=== PATIENT | female | born 1950 | race Caucasian/White ===

== ENCOUNTER 2018-01-21 13:20 | Outpatient (CLI) | payer MEDICARE, OTHER | END 2018-01-21 13:21 | disposition home or self-care (01) | LOC: RT 13:20 | PROVIDERS: ATTEND Internal Medicine | DX: R06.00 Dyspnea, unspecified (principal) | CPT/HCPCS: 94010 ==

== ENCOUNTER 2018-12-04 14:50 | Outpatient (CLI) | payer MEDICARE, OTHER ==
--- NOTE | 2018-12-05 15:20 | Ultrasound Report ---
Reason: HYPOTHYROIDISM,UNSPECIFIED Procedure Date: 12/04/2018 Accession Number: [id number] / [id number] Procedure: US - Head or Neck Soft Tissue CPT Code: FULL RESULT: EXAM: THYROID ULTRASOUND EXAM DATE: 12/04/2018 03:21 PM. CLINICAL HISTORY: Hypothyroidism COMPARISON: None. TECHNIQUE: Real time sonographic imaging of the thyroid was performed by the chief medical director. Multiple sales representative [employer] static images were saved for review. FINDINGS: THYROID GLAND: Right Lobe: 4.3 x 1.5 x 1.6 cm, volume 5.4 cc. Diffusely heterogeneous, nodular parenchyma without discrete measurable nodules. Left Lobe: 3.5 x 0.9 x 1.4 cm, volume 2.4 cc. Diffusely heterogeneous, nodular parenchyma without discrete measurable nodules. Isthmus: 0.2 cm AP. LYMPH NODES: No adenopathy demonstrated in the central or lateral compartment. OTHER: None. IMPRESSION: Small thyroid gland with diffusely heterogeneous, nodular parenchyma and no discrete measurable nodules, which may represent sequela of chronic hypothyroidism. RADIA
== END 2018-12-04 14:51 | disposition home or self-care (01) ==
LOC: DI 14:50
PROVIDERS: ATTEND Internal Medicine
DX: E03.9 Hypothyroidism, unspecified (principal)
CPT/HCPCS: 76536

== ENCOUNTER 2019-09-11 12:43 | Outpatient (CLI) | payer MEDICARE, OTHER ==
--- NOTE | 2019-09-12 10:02 | Mammography Report ---
Reason: ROUTINE MAMMO Procedure Date: 09/11/2019 Accession Number: [id number] / [id number] Procedure: MGS - Screening Mammo Dig Bilat CPT Code: Final Report FULL RESULT: EXAM: Screening Mammo Dig Bilat DATE: 09/11/2019 1:09 PM CLINICAL HISTORY: The patient is an asymptomatic 69-year-old female presenting for screening mammography. Patient reports a Second degree family history of breast cancer. TECHNIQUE: (B) - Bilateral CC and MLO views were obtained. COMPARISON: None available. PARENCHYMAL PATTERN: (A) - The breasts demonstrate scattered fibroglandular densities bilaterally. FINDINGS: RIGHT BREAST: There are no suspicious masses, calcifications, or areas of distortion. LEFT BREAST: There are loosely-grouped calcifications in the upper outer middle position. Recommend targeted magnification views for more detailed evaluation. The remainder the parenchymal pattern is unremarkable. IMPRESSION: RIGHT BREAST: Negative examination. BI-RADS category 1. LEFT BREAST: Incomplete examination. BI-RADS Category 0 RECOMMENDATION: The patient should be recalled to undergo targeted magnification views of the left breast, as described above.. BI-RADS CATEGORY: (0) - Incomplete Examination - need additional evaluation. STANDARD QUALIFYING STATEMENTS: 1. This examination was reviewed with the aid of Computer-Aided Detection (CAD). 2. A negative or benign imaging report should not preclude biopsy if clinically suspicious findings are present. 3. Dense breasts may obscure an underlying neoplasm.
== END 2019-09-11 12:44 | disposition home or self-care (01) ==
LOC: DI.S 12:43
PROVIDERS: ATTEND Physician Assistant
DX: Z12.31 Encounter for screening mammogram for malignant neoplasm of breast (principal); R92.1 Mammographic calcification found on diagnostic imaging of breast; Z80.3 Family history of malignant neoplasm of breast
CPT/HCPCS: 77067

== ENCOUNTER 2019-10-25 09:35 | Outpatient (CLI) | payer MEDICARE, OTHER ==
--- NOTE | 2019-10-25 16:36 | Mammography Report ---
Reason: ABN MAMMO - LT SPEC VIEWS Procedure Date: 10/25/2019 Accession Number: [id number] / [id number] Procedure: GERARD - Diag Special Views Dig LT CPT Code: Final Report FULL RESULT: EXAM: Diag Special Views Dig LT DATE: 10/25/2019 10:20 AM CLINICAL HISTORY: Diagnostic examination. The patient is recalled from screening for a grouping of calcifications in the left breast. TECHNIQUE: (L) - Left ML, magnified ML and magnified CC views are obtained. COMPARISON: 09/11/2019 through 02/21/2007. PARENCHYMAL PATTERN: (A) - The breast(s) demonstrate(s) scattered fibroglandular densities. FINDINGS: The grouping of calcifications in the left upper outer breast 11.4 cm from the nipple is probably benign with no associated mass seen. There are no suspicious masses or areas of distortion. IMPRESSION: Probably Benign. BI-RADS category 3. RECOMMENDATION: (6MOS) - Recommend 6 month follow-up exam. Left breast magnification views. BI-RADS CATEGORY: (3) - Probably Benign. STANDARD QUALIFYING STATEMENTS: 1. This examination was not reviewed with the aid of Computer-Aided Detection (CAD). 2. A negative or benign imaging report should not preclude biopsy if clinically suspicious findings are present. 3. Dense breasts may obscure an underlying neoplasm. 4. This examination was reviewed with the aid of 3D breast imaging (tomosynthesis).
== END 2019-10-25 09:36 | disposition home or self-care (01) ==
LOC: DI 09:35
PROVIDERS: ATTEND Physician Assistant
DX: R92.1 Mammographic calcification found on diagnostic imaging of breast (principal)

== ENCOUNTER 2020-06-24 10:16 | Outpatient (CLI) | payer MEDICARE, OTHER ==
--- NOTE | 2020-06-26 11:45 | Mammography Report ---
UNILATERAL LEFT DIGITAL DIAGNOSTIC MAMMOGRAM 3D/2D: 06/24/2020 CLINICAL: Patient returns for a 6 month follow up of the left breast. Comparison is made to exams dated: 10/25/2019 mammogram, 09/11/2019 mammogram, and 02/23/2014 mammogram - [facility]. The tissue of left breast is predominantly fatty. There are grouped linear fine calcifications in the left breast at 1 o'clock middle depth. There is architectural distortion associated with the calcifications. No other significant masses or calcifications are seen in the breast. IMPRESSION: SUSPICIOUS OF MALIGNANCY The grouped linear fine calcifications in the left breast are at a low suspicion for malignancy. A s tereotactic biopsy is recommended. This exam was interpreted at Station ID: [id number]. NOTE: For mammograms, a report in lay terms will be sent to the patient. Approximately 15% of breast malignancies will not be visualized mammographically. In the management of a palpable breast mass, a negative mammogram must not discourage biopsy of a clinically suspicious lesion. SUMMARY: This was discussed with the patient by the radiologist Dr. García at the time of the exam. Electronically Signed By: Brittany Dillard M.D. lk/:06/24/2020 12:11:16 ACR BI-RADS Category 4a: Suspicious abnormality - low suspicion for malignancy 3344F PARENCHYMAL PATTERN: (F) - The breast(s) demonstrate(s) diffuse fatty replacement. BI-RADS CATEGORY: (4a) - Low Susp Biopsy follow-up [id number] Immediate follow-up LATERALITY: (B)
== END 2020-06-24 10:17 | disposition home or self-care (01) ==
LOC: DI 10:16
PROVIDERS: ATTEND Registered Nurse
DX: R92.1 Mammographic calcification found on diagnostic imaging of breast (principal)

== ENCOUNTER 2020-07-11 13:10 | Outpatient (CLI) | payer MEDICARE, OTHER ==
[~2020-07-11 13:10] MED LIST: BUFFERED LIDOCAINE 10 ML SYRINGE ONE; BUPIVACAINE 0.5% PF 10 ML VIAL ONE
[2020-07-11] MEDS ORDERED: BUPIVACAINE 0.5% PF 10 ML VIAL ONE (13:18)
[2020-07-11] MEDS ORDERED: BUFFERED LIDOCAINE 10 ML SYRINGE IU ONE (15:30)
[2020-07-11] MEDS ORDERED: LIDOCAINE 1%-EPI 1:100000 20 ML MDV SUBQ ONE (15:31)
--- NOTE | 2020-07-16 06:59 | Mammography Report ---
DIGITAL TOMOGRAPHIC MAMMOGRAPHY GUIDED STEREOTACTIC GUIDED BIOPSY LEFT BREAST WITH MARKING DEVICE INS ERTED: 07/11/2020 CLINICAL: Microcalcifications left breast. PATIENT CONSENT: Risks (minor bleeding, infection, vasovagal reaction and repeat procedure), benefits and alternatives were explained to the patient and written informed consent was obtained. Correlation is made to exams dated: 06/24/2020 mammogram, 10/25/2019 mammogram, 09/11/2019 mammogram, a nd 02/23/2014 mammogram - [facility]. A stereotactic guided biopsy was performed for the area of grouped and linear fine calcifications loc ated in the left breast at 2 o'clock middle depth. This was described on the previous mammography re port. The skin was prepped in the usual manner. Local anesthetic was administered to the access sit e. A small incision was made in the breast. The abnormality was approached from the craniocaudal as pect using an upright digital tomographic mammography unit. A 9 gauge biopsy needle was placed adjac ent to the abnormality under computer guidance and confirmatory stereotactic mammography images were obtained to document needle placement. Once the needle was documented to be in the correct location, a specimen was obtained using an automated biopsy gun. A clip was inserted into the biopsy cavity. A skin closure strip and a sterile dressing were applied to the access site. Post procedure imaging demonstrates the location device at the targeted area. The specimen was sent to the laboratory for pathological analysis. IMPRESSION: STEREOTACTIC GUIDED BIOPSY HIGH RISK BENIGN Stereotactic guided biopsy of the area of grouped and linear fine calcifications in the left breast a t 2 o'clock middle depth was successful. Pathology indicates high risk benign atypical ductal hyper plasia (ADH). Pathology results are concordant with imaging findings. A surgical consultation and e xcisional biopsy is recommended. This exam was interpreted at Station ID: [id number]. Wu Dillard M.D., jr,lk/:07/15/2020 14:00:54 BI-RADS CATEGORY: () - Unspecified - other recall n/a LATERALITY: (B)
== END 2020-07-11 13:11 | disposition home or self-care (01) ==
LOC: DI 13:10
PROVIDERS: ATTEND Registered Nurse
DX: N60.92 Unspecified benign mammary dysplasia of left breast (principal)
CPT/HCPCS: 19081; 88305; 88342; 88360

== ENCOUNTER 2020-09-11 13:26 | Outpatient (CLI) | payer MEDICARE, OTHER | END 2020-09-11 13:27 | disposition home or self-care (01) | LOC: LAB 13:26 | PROVIDERS: ATTEND Surgery | DX: Z01.812 Encounter for preprocedural laboratory examination (principal); Z01.818 Encounter for other preprocedural examination; Z20.828 Contact with and (suspected) exposure to other viral communicable diseases; N60.89 Other benign mammary dysplasias of unspecified breast | CPT/HCPCS: 93005; U0004 ==

== ENCOUNTER 2020-09-16 08:24 | Day surgery (SDC) | payer MEDICARE, OTHER ==
[2020-09-16] MEDS ORDERED: LACTATED RINGERS 1,000 ML IV ONE ×2 (09:11→13:57)
[2020-09-16] MEDS ORDERED: CEFAZOLIN SODIUM IN 0.9 % NACL 2 GM/100 ML BAG IV ONE (09:19)
[2020-09-16] MEDS ORDERED: BUFFERED LIDOCAINE 10 ML SYRINGE ONE (09:19)
[2020-09-16] MEDS ORDERED: BUPIVACAINE 0.5% PF 10 ML VIAL ONE (09:26)
--- NOTE | 2020-09-16 10:50 | ANESTHESIA ---
Pre-Anesthesia VS, & Labs - Diagnosis left breast cancer - Procedure left breast lumpectomy after needle localization Vital Signs: Temp Pulse Resp BP Pulse Ox 36.4 C L 85 15 156/82 H 96 09/16/20 08:30 09/16/20 08:30 09/16/20 08:30 09/16/20 08:30 09/16/20 08:30 Height: 5 ft 2 in Weight (kg): 81.3 kg Body Mass Index: 32.8 BMI Classification: Obese - NPO >8 hours - Is Patient ?: No Home Medications and Allergies Home Medications: Ambulatory Orders Melatonin 10 mg SL QPM 09/09/20 Thyroid,Pork [[place] Thyroid] 120 mg PO DAILY 09/09/20 Melatonin 10 mg SL QPM 09/09/20 Thyroid,Pork [[place] Thyroid] 120 mg PO DAILY 09/09/20 Allergies/Adverse Reactions: Allergies Allergy/AdvReac Type Severity Reaction Status Date / Time codeine AdvReac Nausea Verified 09/12/15 11:12 Anes History & Medical History - Anesthetic History Anesthesia Complications: reports: No previous complications - Medical History Cardiovascular: reports: Hypertension Pulmonary: reports: None Gastrointestinal: reports: None Urinary: reports: None Musculoskeletal: reports: None Endocrine/Autoimmune: reports: HyPOthyroidism Skin: reports: Psoriasis Smoking Status: Never smoker History of Cancer?: Yes - Surgical History General: Cholecystectomy Eyes Ears Nose Throat (EENT): Tonsil/Adenoidectomy Gynecologic: Tubal ligation Exam General: Alert Dental: WNL Mouth Opening: Greater than 4 Fingerbreadths Neck Mobility: Normal Mallampati classification: III Plan Anesthesia Type: General Consent for Procedure(s) Verified and Reviewed: Yes Code Status: Attempt Resuscitation ASA classification: 2-Mild systemic disease Is this case an emergency?: No
[2020-09-16] MEDS ORDERED: LIDOCAINE 1%-EPI 1:100000 20 ML MDV ONE (10:56)
[2020-09-16] MEDS ORDERED: ONDANSETRON 4 MG/2 ML VIAL ONE (10:56)
[2020-09-16] MEDS ORDERED: BUPIVACAINE 0.5% PF 30 ML VIAL ONE (10:57)
[2020-09-16] MEDS ORDERED: ePHEDrine 50 MG/ML VIAL IVP PRN (10:59)
[2020-09-16] MEDS ORDERED: fentaNYL 100 MCG/2 ML VIAL IVP PRN (10:59)
[2020-09-16] MEDS ORDERED: METOCLOPRAMIDE 10 MG/2 ML VIAL IVP PRN (10:59)
[2020-09-16] MEDS ORDERED: ONDANSETRON 4 MG/2 ML VIAL IVP PRN ×2 (10:59→13:47)
[2020-09-16] MEDS ORDERED: HYDROmorphone 0.5 MG/0.5 ML SYRINGE IVP PRN (10:59)
[2020-09-16] MEDS ORDERED: NALOXONE 0.4 MG/ML VIAL IVP PRN (10:59)
[2020-09-16] MEDS ORDERED: ATROPINE ABBOJECT 1 MG/10 ML SYRINGE IVP PRN (10:59)
[2020-09-16] MEDS ORDERED: MORPHINE 2 MG/ML CARPUJECT IVP PRN (10:59)
[2020-09-16] MEDS ORDERED: SCOPOLAMINE PATCH TOP SCH (11:00)
[2020-09-16] MEDS ORDERED: LACTATED RINGERS 1,000 ML IV SCH (11:00)
[2020-09-16] MEDS ORDERED: PROPOFOL 200 MG/20 ML VIAL IVP ONE (12:49)
[2020-09-16] MEDS ORDERED: MIDAZOLAM 2 MG/2 ML VIAL IVP ONE (12:49)
[2020-09-16] MEDS ORDERED: DEXAMETHASONE 4 MG/ML VIAL IVP ONE (12:49)
[2020-09-16] MEDS ORDERED: fentaNYL 100 MCG/2 ML VIAL IVP ONE (12:49)
[2020-09-16] MEDS ORDERED: ACETAMINOPHEN 1,000 MG/100 ML 100 ML IV ONE (12:49)
[2020-09-16] MEDS ORDERED: LIDOCAINE-MPF 2% 5 ML VIAL IM ONE (12:49)
[2020-09-16] MEDS ORDERED: BUFFERED LIDOCAINE 10 ML SYRINGE IU ONE (13:03)
[2020-09-16] MEDS ORDERED: BUPIVACAINE 0.5% PF 30 ML VIAL SUBQ ONE (13:40)
[2020-09-16] MEDS ORDERED: LIDOCAINE 1%-EPI 1:100000 30 ML MDV SUBQ ONE (13:40)
[2020-09-16] MEDS ORDERED: oxyCODONE 5 MG TABLET PO PRN (13:47)
[2020-09-16] MEDS ORDERED: IBUPROFEN 600 MG TABLET PO PRN (13:47)
[2020-09-16] MEDS ORDERED: ACETAMINOPHEN 325 MG TABLET PO PRN (13:47)
--- NOTE | 2020-09-16 13:47 | OPERATIVE REPORT ---
Operative Report - General Procedure Date: 09/16/20 Planned Procedure: Left breast lumpectomy after needle localization Pre-Op Diagnosis: Left breast atypical ductal hyperplasia Procedure Performed: Same Post Op Diagnosis: Same - Procedure Note Primary Surgeon: Jennifer Anesthesia Provider: TIGRE Mckeon Anesthesia Technique: General LMA, Local Pathology: Specimen marked for orientation and submitted to pathology Estimated Blood Loss (mL): 5 Findings: Lesion contained within the specimen Complications: None apparent - Other Other Information/Narrative: We turned our attention to the left breast mass.The position of the wire within the breast was noted on mammogram. Measurements were made from the center of the mass and then marked on the skin as guides for approximate margins. The area over the mass and in the periareolar region was infiltrated with a mixture of local anesthetics to cry to field block. A periareolar incision was then created in the medial aspect of the left nipple areola complex. This was carried through the skin to the marked margin. The mass was carefully dissected sharply from the dermis anteriorly and from the muscle posteriorly. The entire mass was removed sharply using the skin markings as guides to ensure an adequate margin. The retromammary bursa was not adherent to the underlying muscle. The mass was reviewed moved in a single piece in a medial to lateral fashion. It was marked with the wire in the superior position, long stitch lateral, and short stitch anterior. It was finally liberated sharply and delivered into the field. The wound was checked for hemostasis. It was irrigated again with warm water. The biopsy cavity was then marked for orientation with clips peripherally and centrally.The wound was then closed in 2 layers with Vicryl and Monocryl sutures. All sponge, needle, and instrument counts were correct at the conclusion of the case. The patient was let awakened anesthesia without difficulty and taken to the postanesthesia care unit in good condition.
--- NOTE | 2020-09-16 14:37 | ANESTHESIA POST OP EVALUATION ---
Anesthesia Post Eval - Post Anesthesia Eval Vitals: Last Vital Signs Temp 36.1 C L 09/16/20 14:15 Pulse 78 09/16/20 14:20 Resp 15 09/16/20 14:20 BP 141/76 H 09/16/20 14:20 Pulse Ox 99 09/16/20 14:20 CV Function Including HR & BP: positive: Stable Pain Control: positive: Satisfactory Nausea & Vomiting: positive: Negative Mental Status: positive: Baseline Respiratory Status: Airway Patent Hydration Status: Satisfactory Anesthesia Complications: positive: None
[2020-09-16] MEDS ORDERED: oxyCODONE 5 MG TABLET ONE (14:47)
[2020-09-16 15:20] VITALS: BP 145/75
--- NOTE | 2020-09-20 08:06 | Mammography Report ---
MAMMOGRAPHY GUIDED WIRE LOCALIZATION LEFT BREAST: 09/16/2020 CLINICAL: Left breast wire localization. Correlation is made to exams dated: 07/11/2020 stereotactic biopsy and 06/24/2020 mammogram - [facility]. A wire localization using mammography guidance was performed for the area of linear amorphous calcifi cations located in the left breast at 1 o'clock posterior depth. This was described on the previous mammography report. The skin was prepped in the usual manner. Local anesthetic was administered to the access site. The localization was approached from the craniocaudal aspect. A J-hook wire was in serted into the targeted area under mammography guidance. It is noted that the biospy clip is notabl y inferior to the calcifications. Wire was placed near clip. However, before repositioning, patient had [place] and vomiting, as well as near syncopal episode. Procedure was terminated and position of calcifications relative to localization needle was conveyed to Dr. Byers. Calcifications are approxi mately 3.5 cm from skin surface along wire track. IMPRESSION: WIRE LOCALIZATION Wire localization for the area of linear amorphous calcifications in the left breast at 1 o'clock pos terior depth was successful. This exam was interpreted at Station ID: [id number]. Vivi Hong M.D. [facility]/:09/19/2020 16:43:38 BI-RADS CATEGORY: () - Unspecified - other recall n/a LATERALITY: (B)
--- NOTE | 2020-09-20 08:06 | Mammography Report ---
SPECIMEN LEFT BREAST: 09/16/2020 CLINICAL: Left breast specimen. No prior exams were available for correlation. A specimen was imaged for the area of linear amorphous calcifications located in the left breast at 1 o'clock posterior depth. This was described on the previous mammography report. Clipl was not inc luded due to clip migration from biopsy site. IMPRESSION: SPECIMEN The imaged specimen includes the calcifications and a location device and does not include biopsy cli p. This exam was interpreted at Station ID: [id number]. Vivi Hong M.D. [facility]/:09/19/2020 16:45:02 BI-RADS CATEGORY: () - Unspecified - other recall n/a LATERALITY: (B)
== END 2020-09-16 08:25 | disposition home or self-care (01) ==
LOC: SDS 08:24
PROVIDERS: ATTEND Surgery
PROC: 0HBU0ZZ Excision of Left Breast, Open Approach (ICD-10-PCS; principal; 2020-09-16 11:30)
DX: C50.912 Malignant neoplasm of unspecified site of left female breast (principal); Z17.0 Estrogen receptor positive status [ER+]; I10 Essential (primary) hypertension; E66.9 Obesity, unspecified; Z68.32 Body mass index [BMI] 32.0-32.9, adult
CPT/HCPCS: 19281; 19301; 76098; 88307; 88342; 88360; A9270; J0131; J0690; J3490; J7120

== ENCOUNTER 2020-10-17 15:39 | Outpatient (CLI) | payer MEDICARE, OTHER ==
[2020-10-17] MEDS ORDERED: GADOBUTROL 10 MMOL/10 ML VIAL ONE (16:56)
[2020-10-18] MEDS ORDERED: GADOBUTROL 10 MMOL/10 ML VIAL IVP ONE (19:10)
--- NOTE | 2020-10-22 10:12 | MRI Report ---
BREAST MRI OF BOTH BREASTS: 10/17/2020 CLINICAL: Post left lumpectomy. Personal history of left breast cancer. Comparison is made to exams dated: 07/11/2020 stereotactic biopsy, 06/24/2020 mammogram, 10/25/2019 isa mogram, 09/11/2019 mammogram, 09/16/2020 localization, and 09/16/2020 specimen - [facility]. TECHNIQUE: The patient was placed prone in a dedicated breast imaging coil. Precontrast axial STIR and 3D FLASH without fat saturation sequences were obtained. Both before and after bolus injection of contrast, sequential 1-minute axial 3D FLASH with fat saturation sequences for 3 time points, with subtraction images and maximum intensity projections (MIP's) generated. Delayed sagittal FLASH images with fat s aturation were also obtained. Computer-aided detection, including computer algorithm analysis of MRI image data for lesion detectio n and characterization, pharmacokinetic analysis, with further physician review for interpretation, w as performed. FINDINGS: Image quality: Excellent. There is mild background parenchymal enhancement. Right breast: A 7 mm nonenhancing intrinsically T1-hyperintense lesion is seen within the skin of th e right breast at the 7-8 o'clock position approximately 2 cm from the nipple. No suspicious mass or abnormal non-mass enhancement is seen in the right breast. There is no signific ant right axillary lymphadenopathy. Left breast: A lumpectomy cavity is seen in the left breast upper outer quadrant middle depth. The c avity has a thin rim of peripheral enhancement without solid nodular enhancement to suggest residual or recurrent disease. The biopsy clip is again seen in the left breast at the 3 o'clock position midd le depth. This clip is noted to be inferior to the area of suspicious calcifications seen on the prio r diagnostic mammograms. There is no significantly enlarged or suspicious appearing left axillary lymph nodes. Miscellaneous: No suspicious abnormality is seen in the included portions of the anterior chest wall or upper abdomen. IMPRESSION: KNOWN BIOPSY PROVEN MALIGNANCY 1. Postsurgical changes are seen in the left breast with a lumpectomy cavity in the upper outer quadr ant. There is an expected thin rim of enhancement surrounding the lumpectomy cavity without a suspici ous thick nodular component. 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 2. The biopsy clip is seen in the left breast at the 3 o'clock position middle depth, which is noted to be inferior to the area of suspicious calcifications on the prior mammograms. No suspicious enhanc ement is identified in the area of the biopsy clip. 3. No suspicious mass or abnormal non-mass enhancement is seen in the right breast. 4. No significant axillary lymphadenopathy. 5. Patient is currently due for right breast screening mammograms, last completed 09/11/2019. BIRADS 6: Known biopsy-proven malignancy. COMMENT: The imaging literature indicates that a negative contrast breast MRI examination has a high sensitivity and a moderate specificity for detecting and excluding invasive carcinomas to a detection threshold of 3-5 mm; nonetheless, appropriate clinical and mammographic follow-up are recommended. MRI is not sensitive for detecting DCIS (ductal carcinoma in situ) and may not detect large invasive neoplasms that show only minimal enhancement such as mucinous carcinoma. If there are suspicious valdo cifications or clinically worrisome palpable masses, then biopsy should still be considered. Invasiv e neoplasms can be hidden by co-existent and benign enhancement caused by mastitis, hormone therapy e ffects, radiation therapy, , and recent biopsy or surgery. False positive examinations can occur in a number of circumstances, including breasts that have recently been subject to invasive pro cedures and those that contain atypical ductal hyperplasia, hormonally stimulated glandular tissue, f at necrosis, or radial scars. This exam was interpreted at Station ID: [id number]. Electronically Signed By: Sb Corrigan M.D. ar/:10/22/2020 09:44:11 ACR BI-RADS Category 6: Known biopsy proven malignancy 3346F BI-RADS CATEGORY: (6) - 6 RECOMMENDATION: (ADDMAM) - Recommend additional mammographic views. [id number] Immediate follow-up LATERALITY: (R)
--- OUTSIDE RECORDS SUMMARY | 2020-10-23 01:17 | EXTERNAL MEDICAL SUMMARY RPT | Continuity of Care Document ---
:1950 Demographics Phone Unavailable Preferred Language Bruneian Marital Status Unknown Shinto Affiliation Unknown Race Unknown Ethnic Group Unknown Author Organization [place] Address [address] [id number] Phone Care Team Providers Name Role Phone IV Unavailable Unavailable MD Unavailable Unavailable Prasad Unavailable Unavailable Registrar Unavailable Unavailable Werve Unavailable Unavailable Problems date description facility 2016-03-17 10:24 TYPE 2 DIABETES MELLITUS WITH [facility] HYPERGLYCEMIA 2016-03-17 10:[address] [facility] al Center 2016-03-17 10:24 CANNABIS ABUSE, UNCOMPLICATED [facility] 2016-03-17 10:24 URINARY TRACT INFECTION, SITE [facility] NOT SPECIFIED 2016-03-17 10:24 ESSENTIAL (PRIMARY) [facility] HYPERTENSION 2016-03-17 10:24 NAUSEA WITH VOMITING, [facility] UNSPECIFIED 2020-07-30 00:00:00 Other benign mammary dysplasias [facility] of unspecified breast 2020-07-30 00:00:00 Atypical hyperplasia of breast [facility] 2020-07-30 00:00:00 Other specified benign mammary [facility] dysplasias 2020-07-30 00:00:00 Total score? [facility] 2020-07-30 00:00:00 Details of drug misuse behavior [facility] 2020-07-30 00:00:00 Current some day smoker [facility] 2020-09-16 08:24 MALIGNANT NEOPLASM OF [facility] UNSPECIFIED SITE OF LEFT FEMALE BREAST 2020-09-16 08:24 OBESITY, UNSPECIFIED 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 2020-09-25 00:00:00 [facility] 2020-09-25 00:00:00 MRI BREAST W/WO - B/L [facility] 2020-09-25 00:00:00 [facility] unspecified site of left female breast 2020-10-17 15:39 [facility]NSPECIF[facility] SITE OF LEFT FEMALE BREAST 2020-10-17 16:00 [facility] UNSPECIFIED SITE OF LEFT FEMALE BREAST Allergies date description facility NO KNOWN ENVIRONMENTAL ALLERGIES [facility] cyclobenzaprine HCl * [facility] morphine [facility] piroxicam [facility] sulfasalazine [facility] hydromorphone [facility] NO KNOWN ALLERG[facility] PENICILLINS [facility] SULFA (SULFONAMIDE ANTIBIOTICS) [facility] NO KNOWN ALLERG[facility] ASPIRIN [facility] ACETAMINOPHEN [facility] SULFASALAZINE [facility] AMLODIPINE [facility] LISINOPRIL [facility] STRAWBERRY [facility] ROSUVASTATIN [facility] CODEINE-GUAIFENESIN [facility] NO KNOWN ALLERGIES [facility] Results test status date ordered by attending specimen prince e null F 2020-09-11 15:11:00 SANTIAGO.Russ Rodriguez 202 15:11:00 facility observation status value reference units lab abnor mal line notes range code [facility] F NEGATIVE [facility] - Report scanned to Patient' s EMR. Testing performe d at [facility] test status date ordered by attending specimen prince e T unknown 2020-09-11 unknown unknown unknown 00:00:00 COVID-19_REFEREN unknown 2020-09-11 unknown unknown unkno wn CE_TEST 00:00:00 _2019NCoV_COVID- unknown 2020-09-11 unknown unknown unkno wn 19_Lab_Test_Resul 00:00:00 t_Text_ T unknown 2020-09-11 unknown unknown unknown 00:00:00 COVID-19_REFEREN unknown 2020-09-11 unknown unknown unkno wn CE_TEST 00:00:00 _2019NCoV_COVID- unknown 2020-09-11 unknown unknown unkno wn 19_Lab_Test_Resul 00:00:00 t_Text_ T unknown 2020-09-11 unknown unknown unknown 00:00:00 COVID-19_REFEREN unknown 2020-09-11 unknown unknown unkno wn CE_TEST 00:00:00 _2019NCoV_COVID- unknown 2020-09-11 unknown unknown unkno wn 19_Lab_Test_Resul 00:00:00 t_Text_ facility observation status value reference units lab abnor mal line range code notes [facility] T unknown NEGATIVE unknown COVI unkn own unknown [facility] COVID-[facility]_REF unknown NEGATIVE unknown COVI unknown unknown Surgical Care ERENCE_TEST D19.R EF [facility] _2019NCoV_CO unknown NEGATIVE unknown _665 unknown unknown Surgical Care VID-19_Lab_Te 997 st_Result_Tex t_ [facility] T unknown NEGATIVE unknown COVI unkn own unknown [facility] COVID-19_REF unknown NEGATIVE unknown COVI unknown unknown Surgical Care ERENCE_TEST D19.R EF [facility] _2019NCoV_CO unknown NEGATIVE unknown _665 unknown unknown Surgical Care VID-19_Lab_Te 997 st_Result_Tex t_ [facility] T unknown NEGATIVE unknown COVI unkn own unknown [facility] COVID-19_REF unknown NEGATIVE unknown COVI unknown unknown Surgical Care ERENCE_TEST D19.R EF [facility] _2019NCoV_CO unknown NEGATIVE unknown _665 unknown unknown Surgical Care VID-19_Lab_Te 997 st_Result_Tex t_ Social History date description facility 2020-07-30 00:00:00 Current some day smoker [facility] Social History date description facility 2020-07-30 00:00:00 Current some day smoker [facility] date description facility [id number]
== END 2020-10-17 15:40 | disposition home or self-care (01) ==
LOC: DI 15:39
PROVIDERS: ATTEND Surgery
DX: Z08 Encounter for follow-up examination after completed treatment for malignant neoplasm (principal); Z85.3 Personal history of malignant neoplasm of breast
CPT/HCPCS: 77049; A9585

== ENCOUNTER 2020-10-25 13:29 | Outpatient (CLI) | payer MEDICARE, OTHER | END 2020-10-25 13:30 | disposition home or self-care (01) | LOC: LAB 13:29 | PROVIDERS: ATTEND Surgery | DX: Z01.812 Encounter for preprocedural laboratory examination (principal); C50.912 Malignant neoplasm of unspecified site of left female breast; Z20.822 Contact with and (suspected) exposure to COVID-19 ==

== ENCOUNTER 2020-10-28 09:24 | Day surgery (SDC) | payer MEDICARE, OTHER ==
[~2020-10-28 09:24] MED LIST changes: -BUFFERED LIDOCAINE 10 ML SYRINGE ONE; -BUPIVACAINE 0.5% PF 10 ML VIAL ONE; +BUPIVACAINE 0.5% PF 30 ML VIAL INFIL ONE; +DEXAMETHASONE 4 MG/ML VIAL ONE; +KETOROLAC 30 MG/ML VIAL ONE; +LIDOCAINE MPF 2%-EPI 1:200000 20 ML VIAL SUBQ ONE; +LIDOCAINE-MPF 2% 5 ML VIAL ONE; +PROPOFOL 200 MG/20 ML VIAL IVP ONE; +ceFAZolin 2 GM/50 ML 0 GM/0 ML BAG IV ONE; +ceFAZolin 2 GM/50 ML 2 GM/50 ML BAG IV ONE
[2020-10-28] MEDS ORDERED: LACTATED RINGERS 1,000 ML IV ONE ×2 (09:47→11:15)
[2020-10-28] MEDS ORDERED: HYDROmorphone 0.5 MG/0.5 ML SYRINGE IVP PRN (10:01)
[2020-10-28] MEDS ORDERED: fentaNYL 100 MCG/2 ML VIAL IVP PRN (10:01)
[2020-10-28] MEDS ORDERED: ATROPINE ABBOJECT 1 MG/10 ML SYRINGE IVP PRN (10:01)
[2020-10-28] MEDS ORDERED: METOCLOPRAMIDE 10 MG/2 ML VIAL IVP PRN (10:01)
[2020-10-28] MEDS ORDERED: ONDANSETRON 4 MG/2 ML VIAL IVP PRN ×2 (10:01→11:19)
[2020-10-28] MEDS ORDERED: MORPHINE 2 MG/ML CARPUJECT IVP PRN (10:01)
[2020-10-28] MEDS ORDERED: ePHEDrine 50 MG/ML VIAL IVP PRN (10:01)
[2020-10-28] MEDS ORDERED: NALOXONE 0.4 MG/ML VIAL IVP PRN (10:01)
--- NOTE | 2020-10-28 10:01 | ANESTHESIA ---
Pre-Anesthesia VS, & Labs - Diagnosis left breast cancer - Procedure re-excision left breast cancer margins Vital Signs: Temp Pulse Resp BP Pulse Ox 36.4 C L 78 18 174/93 H 99 10/28/20 09:40 10/28/20 09:40 10/28/20 09:40 10/28/20 09:40 10/28/20 09:40 Height: 5 ft 2 in Weight (kg): 82.5 kg Body Mass Index: 33.3 BMI Classification: Obese - NPO >8 hours - Is Patient ?: No - Lab Results Lab results reviewed: Yes Home Medications and Allergies Melatonin 10 mg SL QPM 09/09/20 Thyroid,Pork [Reading Thyroid] 120 mg PO DAILY 09/09/20 Allergies/Adverse Reactions: Allergies Allergy/AdvReac Type Severity Reaction Status Date / Time codeine AdvReac Nausea Verified 09/12/15 11:12 Anes History & Medical History - Anesthetic History Anesthesia Complications: reports: No previous complications Family history of Anesthesia Complications: Denies Family history of Malignant Hyperthermia: Denies - Medical History Cardiovascular: reports: Hypertension Pulmonary: reports: None Gastrointestinal: reports: None Urinary: reports: None Musculoskeletal: reports: None Endocrine/Autoimmune: reports: HyPOthyroidism Skin: reports: Psoriasis Smoking Status: Never smoker - Surgical History General: Cholecystectomy Eyes Ears Nose Throat (EENT): Tonsil/Adenoidectomy Gynecologic: Tubal ligation Exam General: Alert, Oriented x3, Cooperative, No acute distress Dental: WNL Mouth Openin Fingerbreadth Neck Mobility: Normal Mallampati classification: II Respiratory: Lungs clear, Normal breath sounds, No respiratory distress, No accessory muscle use Cardiovascular: Regular rate, Normal S1, Normal S2, No murmurs Plan Anesthesia Type: General Consent for Procedure(s) Verified and Reviewed: Yes Code Status: Attempt Resuscitation ASA classification: 2-Mild systemic disease Is this case an emergency?: No
[2020-10-28] MEDS ORDERED: SCOPOLAMINE PATCH TOP ONE (10:10)
[2020-10-28] MEDS ORDERED: LIDOCAINE MPF 2%-EPI 1:200000 20 ML VIAL SUBQ ONE (10:47)
[2020-10-28] MEDS ORDERED: BUPIVACAINE 0.5% PF 30 ML VIAL INFIL ONE (10:47)
[2020-10-28] MEDS ORDERED: LACTATED RINGERS 1,000 ML IV SCH (11:00)
[2020-10-28] MEDS ORDERED: SCOPOLAMINE PATCH TOP SCH (11:00)
--- NOTE | 2020-10-28 11:08 | OPERATIVE REPORT ---
Operative Report - General Procedure Date: 10/28/20 Planned Procedure: Re-excision of margins left breast Pre-Op Diagnosis: Left breast cancer Procedure Performed: Re-excision of margins left breast Post Op Diagnosis: Left breast cancer - Procedure Note Primary Surgeon: Jennifer Anesthesia Provider: TIGRE Huang Anesthesia Technique: General LMA, Local Pathology: Complete margin to pathology in formalin - short stitch superior, long stitch lateral and double stitch anterior Estimated Blood Loss (mL): 50 Drain/Tube Type: Karl drain (15 F Karl drain in the lumpectomy pocket) Complications: None apparent - Other Other Information/Narrative: After obtaining informed consent, the patient was brought to the operating room and placed in the supine position on the operating table. Following successful induction of general endotracheal anesthesia, appropriate padding of all bony prominences, and placement of appropriate monitors, the left breast was prepped and draped in the standard surgical fashion. A timeout was held per scope protocol. All elements of the surgical safety checklist were followed before, during, and after the procedure. Following infiltration with local anesthetic to create a field block, the existing incision was reopened and carried to the edge of the lumpectomy cavity. The surgeon's finger was used to palpate the cavity. The entire 360 degree mar gin was excised sharply with the cavity inside. The specimen was marked for orientation and submitted to pathology in formalin. The wound was checked for hemostasis. It was irrigated with warm water and aspirated free of all fluid and particulate matter. A 15 F Karl drain was placed inferolaterally and sewn into place. The wound was then closed in layers with Vicryl and Moncryl suture. All sponge, needle and instrument counts were correct at the conclusion of the case. The patient was allowed to waken from anesthesia without difficulty and taken to the post anesthesia care unit in good condition.
[2020-10-28] MEDS ORDERED: oxyCODONE 5 MG TABLET PO PRN (11:19)
[2020-10-28] MEDS ORDERED: ACETAMINOPHEN 325 MG TABLET PO PRN (11:19)
[2020-10-28] MEDS ORDERED: IBUPROFEN 600 MG TABLET PO PRN (11:19)
[2020-10-28] MEDS ORDERED: traMADol 50 MG TABLET PO ONE (12:14)
[2020-10-28 13:06] VITALS: BP 135/70
== END 2020-10-28 09:25 | disposition home or self-care (01) ==
LOC: SDS 09:24
PROVIDERS: ATTEND Surgery
PROC: 0HBU0ZZ Excision of Left Breast, Open Approach (ICD-10-PCS; principal; 2020-10-28 10:30)
DX: C50.912 Malignant neoplasm of unspecified site of left female breast (principal); I10 Essential (primary) hypertension; E03.9 Hypothyroidism, unspecified; E66.9 Obesity, unspecified; Z68.33 Body mass index [BMI] 33.0-33.9, adult; F17.210 Nicotine dependence, cigarettes, uncomplicated
CPT/HCPCS: 19301; A9270; J0690; J3490; J7120

== ENCOUNTER 2020-11-27 10:39 | Outpatient (CLI) | payer MEDICARE, OTHER ==
--- NOTE | 2020-11-27 16:18 | DEXA Report ---
PROCEDURE: Dexa Spine and/or Hip INDICATIONS: POST MENOPAUSAL TECHNIQUE: Dual energy x-ray absorptiometry (DXA) was performed on a [employer] System. Regions measur ed are the AP Spine, femoral neck, and if needed forearm. COMPARISON: None. FINDINGS: Lumbar Spine: Bone Mineral Density 1.165 g/cm/cm,T score -0.1, normal Left Hip: Bone Mineral Density 0.931 g/cm/cm,T score -0.6, normal Left Femoral Neck: Bone Mineral Density 0.755 g/cm/cm, T score -2, moderate osteopenia (T score greater or equal to -1.0: NORMAL) (T score from -1.1 to -2.4: OSTEOPENIA) (T score less than or equal to -2.5 to: OSTEOPOROSIS) Impression: Moderate osteopenia in the left femoral neck. Patients with diagnosis of osteoporosis or osteopenia should have regular bone mineral density assess ment. For those eligible for Medicare, routine testing is allowed once every 2 years. Testing frequ ency can be increased for patients who have rapidly progressing disease or for those who are receivin g medical therapy to restore bone mass. Reviewed by: Vivi Hong MD on 11/27/2020 4:17 PM PST Approved by: Vivi Hong MD on 11/27/2020 4:17 PM PST Station ID: [id number]
== END 2020-11-27 10:40 | disposition home or self-care (01) ==
LOC: DI 10:39
PROVIDERS: ATTEND Internal Medicine
DX: M85.88 Other specified disorders of bone density and structure, other site (principal)

== ENCOUNTER 2021-03-06 10:14 | Outpatient (CLI) | payer MEDICARE, OTHER ==
--- NOTE | 2021-03-06 16:53 | XRAY Report ---
PROCEDURE: Hip w/Pelvis 2-3V LT INDICATIONS: HIP PAIN, LEFT TECHNIQUE: AP pelvis with lateral view(s) of the left hip(s). COMPARISON: None. FINDINGS: Bones: No fractures or dislocations. Pelvic ring appears intact. No suspicious bony lesions. Slig ht narrowing of each hip joint, symmetrically, degenerative in origin. Soft tissues: The visualized bowel gas pattern is normal. No suspicious soft tissue calcifications. IMPRESSION: This is a normal study except for mild symmetric hip joint degenerative osteoarthritic c hange.. Reviewed by: Aramis García MD on 03/06/2021 4:51 PM PDT Approved by: Aramis García MD on 03/06/2021 4:51 PM PDT Station ID: [id number]
== END 2021-03-06 23:59 | disposition home or self-care (01) ==
LOC: DI.N 10:14
PROVIDERS: ATTEND Physician Assistant
DX: M25.552 Pain in left hip (principal); M16.12 Unilateral primary osteoarthritis, left hip

== ENCOUNTER 2021-04-16 08:34 | Outpatient (CLI) | payer MEDICARE, OTHER ==
[2021-04-16 15:15] LABS: BASOPHILS % (AUTO) 0.6 %; EOSINOPHILS # (AUTO) 0.2 10^3/uL (0.0-0.7); EOSINOPHILS % (AUTO) 3.6 %; HCT - HEMATOCRIT 42.6 % (37.0-47.0); HGB - HEMOGLOBIN 13.6 g/dL (12.0-16.0); LYMPHOCYTES # (AUTO) 2.6 10^3/uL (1.5-3.5); LYMPHOCYTES % (AUTO) 40.3 %; MEAN CORPUSCULAR HEMOGLOBIN 29.5 pg (27.0-31.0); MEAN CORPUSCULAR HGB CONC 31.9 g/dL (32.0-36.0); MEAN CORPUSCULAR VOLUME 92.4 fL (81.0-99.0); MONOCYTES # (AUTO) 0.5 10^3/uL (0.0-1.0); MONOCYTES % (AUTO) 7.3 %; NEUTROPHILS # (AUTO) 3.1 10^3/uL (1.5-6.6); PLT - PLATELET COUNT 215 10^3/uL (130-450); RED BLOOD COUNT 4.61 10^6/uL (4.20-5.40); RED CELL DISTRIBUTION WIDTH 13.7 % (12.0-15.0); WHITE BLOOD COUNT 6.5 x10^3/uL (4.8-10.8)
[2021-04-16 15:37] LABS: THYROID STIMULATING HORMONE < 0.08 uIU/mL (0.34-5.60)
[2021-04-16 15:39] LABS: FREE T4 (FREE THYROXINE) 0.84 ng/dL (0.58-1.64)
[2021-04-16 15:40] LABS: FREE T3 3.36 pg/mL (2.5-3.9)
[2021-04-16 15:44] LABS: ALBUMIN 4.2 g/dL (3.2-5.5); ALBUMIN/GLOBULIN RATIO 1.3 (1.0-2.2); ALKALINE PHOSPHATASE 55 IU/L (42-121); ALT ALANINE AMINOTRANSFERASE 20 IU/L (10-60); AST ASPARTATE AMINOTRANSFERASE 18 IU/L (10-42); BILIRUBIN,TOTAL 0.7 mg/dL (0.2-1.0); BUN - BLOOD UREA NITROGEN 13 mg/dL (6-20); CALCIUM 9.4 mg/dL (8.5-10.3); CARBON DIOXIDE - CO2 29 mmol/L (21-32); CHLORIDE 105 mmol/L (101-111); CHOL/HDL RATIO 4.5 (<4.4); CHOLESTEROL 263 mg/dL; CREATININE 0.7 mg/dL (0.4-1.0); GFR - MDRD 82 (>89); GLUCOSE 98 mg/dL (70-100); HDL CHOLESTEROL 59 mg/dL; LDL CHOLESTEROL,CALCULATED 176 mg/dL; MAGNESIUM 2.1 mg/dL (1.7-2.8); POTASSIUM 4.1 mmol/L (3.5-5.0); SODIUM 142 mmol/L (135-145); TOTAL PROTEIN 7.4 g/dL (6.7-8.2); TRIGLYCERIDES 142 mg/dL; VLDL CHOLESTEROL 28 mg/dL
[2021-04-16 20:43] LABS: ESTIMATED AVERAGE GLUCOSE 114 mg/dL (70-100); HEMOGLOBIN A1c% 5.6 % (4.27-6.07)
== END 2021-04-16 08:35 | disposition home or self-care (01) ==
LOC: LAB.S 08:34
PROVIDERS: ATTEND Registered Nurse
DX: E06.3 Autoimmune thyroiditis (principal); E78.5 Hyperlipidemia, unspecified; R73.01 Impaired fasting glucose; R53.83 Other fatigue; E55.9 Vitamin D deficiency, unspecified; M85.80 Other specified disorders of bone density and structure, unspecified site
CPT/HCPCS: 36415; 80053; 80061; 82306; 82607; 83036; 83721; 83735; 84439; 84443; 84481; 85025; 86376; 86800

== ENCOUNTER 2021-04-24 10:39 | Outpatient (CLI) | payer MEDICARE, OTHER ==
--- NOTE | 2021-04-24 15:37 | XRAY Report ---
PROCEDURE: Chest 2 View X-Ray INDICATIONS: COUGH TECHNIQUE: 2 view(s) of the chest. COMPARISON: Chest x-ray, 2 views, 05/31/2014. FINDINGS: Surgical changes and devices: None. Lungs and pleura: No pleural effusions or pneumothorax. Lungs are clear. Mediastinum: Mediastinal contours are normal. Heart size is normal. Bones and chest wall: No suspicious bony abnormalities. Soft tissues appear unremarkable. IMPRESSION: No acute cardiopulmonary disease. Reviewed by: Tacos Otto MD on 04/24/2021 3:36 PM PDT Approved by: Tacos Otto MD on 04/24/2021 3:36 PM PDT Station ID: [id number]
== END 2021-04-24 10:40 | disposition home or self-care (01) ==
LOC: DI.S 10:39
PROVIDERS: ATTEND Registered Nurse
DX: R05 Cough (principal)

== ENCOUNTER 2021-05-20 12:25 | Outpatient (CLI) | payer MEDICARE, OTHER ==
--- NOTE | 2021-05-21 14:39 | Mammography Report ---
BILATERAL DIGITAL DIAGNOSTIC MAMMOGRAM 3D/2D: 05/20/2021 CLINICAL: Post left lumpectomy. Patient returns for a 6 month follow up of the left breast. Due for r ight breast mammo. Comparison is made to exams dated: 10/17/2020 breast MRI, 09/16/2020 specimen, 09/16/2020 localization, 07/11/2020 stereotactic biopsy, 06/24/2020 mammogram, and 10/25/2019 mammogram - [facility]. The tissue of both breasts is predominantly fatty. Post-operative finding in the left breast from prior lumpectomy. There is a biopsy clip remaining in the left breast. No new suspicious calcifications. No significant masses, calcifications, or other findings are seen in either breast. IMPRESSION: INCOMPLETE: NEEDS ADDITIONAL IMAGING EVALUATION The left breast post-operative findings is prominent. A targeted ultrasound is recommended and will immediately follow. This exam was interpreted at Station ID: [id number]. NOTE: For mammograms, a report in lay terms will be sent to the patient. Approximately 15% of breast malignancies will not be visualized mammographically. In the management of a palpable breast mass, a negative mammogram must not discourage biopsy of a clinically suspicious lesion. Electronically Signed By: Grant Barnes M.D. slc/:05/20/2021 16:21:08 ACR BI-RADS Category 0: Incomplete [id number] PARENCHYMAL PATTERN: (F) - The breast(s) demonstrate(s) diffuse fatty replacement. BI-RADS CATEGORY: (0) - 0 Ultrasound [id number] Immediate follow-up LATERALITY: (B)
--- NOTE | 2021-05-21 14:39 | Ultrasound Report ---
LIMITED ULTRASOUND OF LEFT BREAST: 05/20/2021 CLINICAL: Post left lumpectomy. Comparison is made to exams dated: 05/20/2021 mammogram, 10/17/2020 breast MRI, 09/16/2020 specimen, 09/16/2020 localization, 07/11/2020 stereotactic biopsy, and 06/24/2020 mammogram - [facility] C enter. Color flow and real-time ultrasound of the left breast upper outer quadrant were performed. Snell sca le images of the real-time examination were reviewed. There is a 3.4 cm x 2.9 cm x 0.8 cm irregular fluid collection in the left breast superior lateral qu adrant middle depth. Volume of 4 mL. This irregular fluid collection is hypoechoic. This correlates with mammography findings. Color flow imaging demonstrates that there is no vascularity present. No mass seen. IMPRESSION: BENIGN There is no sonographic evidence of malignancy. Small fluid collection in the left breast is consistent with the lumpectomy cavity or a seroma and is benign. A 1 year screening mammogram is recommended. Exam findings were conveyed to the patient. Patient is advised to monitor for significant change. Cli nical follow-up as needed. This exam was interpreted at Station ID: [id number]. Electronically Signed By: Grant Barnes M.D. slc/:05/20/2021 14:24:51 Ultrasound BI-RADS: 2 Benign BI-RADS CATEGORY: (2) - 2 RECOMMENDATION: (ANNUAL) - Recommend routine annual screening mammography. [id number] 1 year screening LATERALITY: (B)
== END 2021-05-20 12:26 | disposition home or self-care (01) ==
LOC: DI 12:25
PROVIDERS: ATTEND Surgery
DX: C50.412 Malignant neoplasm of upper-outer quadrant of left female breast (principal)

== ENCOUNTER 2021-09-02 07:00 | Outpatient (CLI) | payer MEDICARE, OTHER ==
[2021-09-02 16:34] LABS: H. PYLORIS ANTIGEN STL NEGATIVE (Negative)
== END 2021-09-02 23:59 | disposition home or self-care (01) ==
LOC: LAB.S 07:00
PROVIDERS: ATTEND Surgery
DX: R19.7 Diarrhea, unspecified (principal); B96.81 Helicobacter pylori [H. pylori] as the cause of diseases classified elsewhere
CPT/HCPCS: 81599; 83630; 87045; 87177; 87209; 87338; 87427; 87449

== ENCOUNTER 2021-12-18 10:31 | Outpatient (CLI) | payer MEDICARE, OTHER ==
--- NOTE | 2021-12-18 14:58 | CT Report ---
PROCEDURE: CHEST WO INDICATIONS: CHRONIC COUGH TECHNIQUE: Noncontrast 1mm axial images were acquired from the pulmonary apices to the posterior costophrenic an gles. Axial 5 mm soft tissue kernel reconstructions were performed as well as 8 mm axial MIP and cor onal and sagittal 5 mm reformations. For radiation dose reduction, the following was used: automate d exposure control, adjustment of mA and/or kV according to patient size. COMPARISON: None FINDINGS: Image quality: Excellent. Lungs and pleura: No acute air space opacities. A small bronchiectasis is present in the lingula. No pleural effusions or pneumothorax. Central and peripheral airways are patent and normal in caliber. Mediastinum: Heart size is normal. No pericardial effusion. No mediastinal adenopathy by size crit eria. Thoracic aorta and central pulmonary arteries are normal in size. Esophagus is normal in demetrius dania. No hiatal hernia. Coronary arteries have atherosclerotic calcifications. Bones and chest wall: No suspicious bony lesions. No vertebral body compression fractures. Degenera tive changes of the thoracic spine. No axillary or supraclavicular adenopathy by size criteria. The thyroid is normal in size. Abdomen: Visualized upper abdominal solid organs and bowel loops appear normal in the absence of con trast. The liver has a 2.5 cm cyst adjacent to the gallbladder fossa. The left kidney has a 2 cm cys t in the superior pole and a 3 cm superior parapelvic cyst. IMPRESSION: 1. No acute abnormality of the chest. 2. Bronchiectasis in the lingula. 2. Benign liver and renal cysts. Reviewed by: Ryan Weinstein on 12/18/2021 2:57 PM PST Approved by: Ryan Weinstein on 12/18/2021 2:57 PM PST Station ID: [id number]
== END 2021-12-18 10:32 | disposition home or self-care (01) ==
LOC: DI 10:31
PROVIDERS: ATTEND Registered Nurse
DX: J47.9 Bronchiectasis, uncomplicated (principal); N28.1 Cyst of kidney, acquired; K76.89 Other specified diseases of liver

== ENCOUNTER 2022-11-16 14:53 | Outpatient (CLI) | payer MEDICARE, OTHER ==
--- NOTE | 2022-11-18 11:30 | Mammography Report ---
BILATERAL DIGITAL SCREENING MAMMOGRAM 3D/2D: 11/16/2022 CLINICAL: Routine screening. Personal history of left breast cancer. Comparison is made to exams dated: 12/11/2021 mammogram - [facility], 05/20/2021 mammogram, 10/17/2020 breast MRI, 06/24/2020 mammogram, and 10/25/2019 mammogram - [facility]. Both breasts are almost entirely fatty (category a/<25% glandular tissue). There are benign post operative findings and biopsy clip in the left breast. No significant masses, calcifications, or other findings are seen in either breast. There has been no significant interval change. IMPRESSION: BENIGN There is no mammographic evidence of malignancy. A 1 year screening mammogram is recommended. This exam was interpreted at Station ID: [id number]. NOTE: For mammograms, a report in lay terms will be sent to the patient. Approximately 15% of breast malignancies will not be visualized mammographically. In the management of a palpable breast mass, a negative mammogram must not discourage biopsy of a clinically suspicious lesion. Electronically Signed By: Barbara guerin/mayra:11/17/2022 12:28:36 ACR BI-RADS Category 2: Benign Finding(s) 3342F PARENCHYMAL PATTERN: (F) - The breast(s) demonstrate(s) diffuse fatty replacement. BI-RADS CATEGORY: (2) - 2 RECOMMENDATION: (ANNUAL) - Recommend routine annual screening mammography. [id number] 1 year screening LATERALITY: (B)
== END 2022-11-16 14:54 | disposition home or self-care (01) ==
LOC: DI 14:53
PROVIDERS: ATTEND Registered Nurse
DX: Z12.31 Encounter for screening mammogram for malignant neoplasm of breast (principal); Z85.3 Personal history of malignant neoplasm of breast

== ENCOUNTER 2023-09-24 12:57 | Emergency (ER) | payer MEDICARE, OTHER ==
[2023-09-24 13:09] VITALS: BP 192/92; O2SAT 99
--- NOTE | 2023-09-24 13:17 | ED Physician Documentation ---
PD HPI HEENT - Stated complaint Stated Complaint: RT EAR PX - Chief complaint Chief Complaint: Heent - History obtained from History obtained from: Patient - Additional information Additional information: She had a large sneeze this morning and there was just a trace of blood in it. 2 hours later she developed pretty significant right ear pain and muffled hearing. No fevers. 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 HEENT: Tonsil/Adenoidectomy - Present Medications Home Medications: Ambulatory Orders Medication Instructions Recorded Confirmed Thyroid,Pork [[place] Thyroid] 120 mg PO DAILY 09/09/20 07/16/21 traMADol [Ultram] 50 mg PO Q4-6H PRN #14 tablet 09/16/20 12/23/21 Levothyroxine [Synthroid] 75 mcg PO DAILY 12/23/21 12/23/21 Amoxicillin 2 tab PO TID #30 cap 09/24/23 - Allergies Allergies/Adverse Reactions: Allergies Allergy/AdvReac Type Severity Reaction Status Date / Time codeine AdvReac Nausea Verified 09/24/23 13:07 - Social History Does the pt smoke?: No Smoking Status: Never smoker Does the pt drink ETOH?: Yes Does the pt have substance abuse?: Yes - Immunizations Immunizations are current?: Yes - POLST Patient has POLST: No PD ED PE NORMAL - Vitals Vital signs reviewed: Yes - General General: Alert and oriented X 3, No acute distress - HEENT HEENT: Other (Left TM is retracted, right TM with severe OM, nasal mucosa appearing normal.) - Neck Neck: Supple, no meningeal sign, No bony TTP - Respiratory Respiratory: No respiratory distress - Neuro Neuro: Alert and oriented X 3 Results - Vitals Vitals: Vital Signs - 24 hr 09/24/23 13:04 Temperature 36.2 C L Heart Rate 70 Respiratory 16 Rate Blood Pressure 192/92 H O2 Saturation 99 Oxygen O2 Source Room air Departure - Departure Disposition: 01 Home, Self Care Clinical Impression: ROM (right otitis media) Condition: Good Record reviewed to determine appropriate education?: Yes Instructions: ED Otitis Media Acute Adult Prescriptions: Amoxicillin 2 tab PO TID #30 cap Comments: I sent your prescription electronically to the [facility] in [place]. Follow-up with your doctor in about a week for recheck. Drink plenty of fluids. Return if worse. Forms: PCP List
== END 2023-09-24 13:46 | disposition home or self-care (01) ==
LOC: ED 12:57
DX: H66.91 Otitis media, unspecified, right ear (principal)
CPT/HCPCS: 99282; 99283

== ENCOUNTER 2023-12-15 08:00 | Outpatient (CLI) | payer MEDICARE, MEDICAID ==
--- NOTE | 2023-12-16 09:14 | XRAY Report ---
PROCEDURE: Hip w/Pelvis 2-3V RT INDICATIONS: RIGHT HIP PAIN TECHNIQUE: 2 views of the hip were acquired. COMPARISON: None. FINDINGS: Bones: No fractures or dislocations. No suspicious bony lesions. Nonuniform joint space narrowing with osteophytic lipping of the acetabulum. Soft tissues: No suspicious soft tissue calcifications or masses. IMPRESSION: No acute bony abnormality. Mild right hip osteoarthritis. Kellgren-Abdoulaye scale of osteoarthritis: 1-2. Reviewed by: Juan Nobles MD on 12/16/2023 9:13 AM PST Approved by: Juan Nobles MD on 12/16/2023 9:13 AM PST Station ID: [id number]
== END 2023-12-15 23:59 | disposition home or self-care (01) ==
LOC: DI.S 08:00
PROVIDERS: ATTEND Internal Medicine
DX: M16.11 Unilateral primary osteoarthritis, right hip (principal)

== ENCOUNTER 2023-12-23 08:00 | Outpatient (CLI) | payer MEDICARE, MEDICAID ==
--- NOTE | 2023-12-23 15:40 | XRAY Report ---
PROCEDURE: Foot 3+V LT INDICATIONS: LEFT FOOT PAIN TECHNIQUE: 3 views of the foot were acquired. COMPARISON: None. FINDINGS: Bones: No fractures or dislocations. Mild hallux valgus alignment with mild first MTP joint space n arrowing on nonweightbearing view. Corticated ossific densities adjacent to the cuboid bone. No suspi cious bony lesions. Soft tissues: No tibiotalar joint effusion. Achilles tendon appears normal. Small plantar calcanea l enthesophyte. IMPRESSION: 1.No acute bony abnormality. If clinical symptoms persist, consider repeat radiograph in 10-14 days. 2.Corticated ossific densities adjacent to the cuboid bone which may represent accessory ossicles eduardo yoel sequela of remote injury. 3.Mild hallux valgus alignment with mild degenerative changes of the first MTP joint on nonweightbear ing view. Reviewed by: Eleanor Mahan MD on 12/23/2023 3:39 PM PDT Approved by: Eleanor Mahan MD on 12/23/2023 3:39 PM PDT Station ID: [id number]
== END 2023-12-23 23:59 | disposition home or self-care (01) ==
LOC: DI.S 08:00
PROVIDERS: ATTEND Registered Nurse
DX: M20.12 Hallux valgus (acquired), left foot (principal); M19.072 Primary osteoarthritis, left ankle and foot

== ENCOUNTER 2023-12-25 14:38 | Outpatient (CLI) | payer MEDICARE, MEDICAID ==
--- NOTE | 2023-12-26 09:36 | Ultrasound Report ---
PROCEDURE: Soft Tissue Head or Neck INDICATIONS: MIRIAN'S THRYOIDITIS, SUBCUTANEOUS NODULE TECHNIQUE: Real-time scanning was performed of the thyroid gland, with image documentation. COMPARISON: None FINDINGS: Right: Thyroid lobe measures 4.5 x 0.7 x 1.1 cm, and is heterogeneous in echotexture. Left: Thyroid lobe measures 3.3 x 0.9 x 1.0 cm, and is heterogeneous in echotexture. Isthmus: 0.3 cm thick. Appearance is typical of long-standing Mirian's thyroiditis. The glenoid is quite heterogeneous an d is small. No measurable nodule is identified. IMPRESSION: Findings consistent with Mirian's thyroiditis. No suspicious focal lesion identified. Reviewed by: Nhan Magdaleno MD on 12/26/2023 9:35 AM PDT Approved by: Nhan Magdaleno MD on 12/26/2023 9:35 AM PDT Station ID: [id number]
--- NOTE | 2023-12-26 09:38 | Ultrasound Report ---
PROCEDURE: Extremity Soft Tissue Limited INDICATIONS: ALEX'S THRYOIDITIS, SUBCUTANEOUS NODULE palpable nodule, right neck, level 2 regio n TECHNIQUE: Real-time scanning was performed of the subjective palpable lump at the level 2 area of t he right cervical region, with image documentation. COMPARISON: Thyroid ultrasound from today. FINDINGS: There is no lesion identified corresponding to the subjective palpable lump. Normal tissue s are identified. No suspicious nodule. IMPRESSION: No suspicious finding corresponds to the subjective palpable lump in the right neck. Reviewed by: Nhan Magdaleno MD on 12/26/2023 9:37 AM PDT Approved by: Nhan Magdaleno MD on 12/26/2023 9:37 AM PDT Station ID: [id number]
== END 2023-12-25 14:39 | disposition home or self-care (01) ==
LOC: DI 14:38
PROVIDERS: ATTEND Internal Medicine
DX: R22.9 Localized swelling, mass and lump, unspecified (principal); E06.3 Autoimmune thyroiditis

== ENCOUNTER 2024-01-07 07:50 | Outpatient (CLI) | payer MEDICARE, MEDICAID ==
[2024-01-07 16:11] LABS: BASOPHILS % (AUTO) 0.6 %; EOSINOPHILS # (AUTO) 0.3 10^3/uL (0.0-0.7); EOSINOPHILS % (AUTO) 4.8 %; HCT - HEMATOCRIT 42.3 % (37.0-47.0); HGB - HEMOGLOBIN 13.4 g/dL (12.0-16.0); LYMPHOCYTES # (AUTO) 2.9 10^3/uL (1.5-3.5); LYMPHOCYTES % (AUTO) 43.8 %; MEAN CORPUSCULAR HEMOGLOBIN 29.4 pg (27.0-31.0); MEAN CORPUSCULAR HGB CONC 31.7 g/dL (32.0-36.0); MEAN CORPUSCULAR VOLUME 92.8 fL (81.0-99.0); MEAN PLATELET VOLUME 13.1 fL (7.9-10.8); MONOCYTES # (AUTO) 0.6 10^3/uL (0.0-1.0); MONOCYTES % (AUTO) 8.2 %; NEUTROPHILS # (AUTO) 2.9 10^3/uL (1.5-6.6); NEUTROPHILS % (AUTO) 42.5 %; PLT - PLATELET COUNT 224 10^3/uL (130-450); RED BLOOD COUNT 4.56 10^6/uL (4.20-5.40); RED CELL DISTRIBUTION WIDTH 13.3 % (12.0-15.0); WHITE BLOOD COUNT 6.7 x10^3/uL (4.8-10.8)
[2024-01-07 16:52] LABS: ALBUMIN 4.1 g/dL (3.2-5.5); ALBUMIN/GLOBULIN RATIO 1.4 (1.0-2.2); ALKALINE PHOSPHATASE 59 IU/L (42-121); ALT ALANINE AMINOTRANSFERASE 12 IU/L (10-60); AST ASPARTATE AMINOTRANSFERASE 13 IU/L (10-42); BILIRUBIN,TOTAL 0.4 mg/dL (0.2-1.0); BUN - BLOOD UREA NITROGEN 22 mg/dL (6-20); CALCIUM 9.7 mg/dL (8.5-10.3); CARBON DIOXIDE - CO2 30 mmol/L (21-32); CHLORIDE 105 mmol/L (101-111); CHOL/HDL RATIO 4.1 (<4.4); CHOLESTEROL 219 mg/dL; CREATININE 0.9 mg/dL (0.6-1.3); GFR - MDRD 61 (>89); GLUCOSE 96 mg/dL (74-104); HDL CHOLESTEROL 53 mg/dL; LDL CHOLESTEROL,CALCULATED 140 mg/dL; LDL/HDL RATIO 2.6 (<4.4); SODIUM 140 mmol/L (135-145); TRIGLYCERIDES 131 mg/dL (48-352); VLDL CHOLESTEROL 26 mg/dL
[2024-01-07 17:05] LABS: THYROID STIMULATING HORMONE 0.41 uIU/mL (0.34-5.60)
[2024-01-07 18:48] LABS: ESTIMATED AVERAGE GLUCOSE 120 mg/dL (70-100); HEMOGLOBIN A1c% 5.8 % (4.27-6.07)
[2024-01-08 20:07] LABS: THYROGLOBULIN ANTIBODY <1.0 IU/mL (0.0-0.9); THYROID PEROXIDASE (TPO) AB 151 IU/mL (0-34)
== END 2024-01-07 07:51 | disposition home or self-care (01) ==
LOC: LAB.S 07:50
PROVIDERS: ATTEND Internal Medicine
DX: R22.9 Localized swelling, mass and lump, unspecified (principal); E78.2 Mixed hyperlipidemia; R73.01 Impaired fasting glucose; E06.3 Autoimmune thyroiditis; R53.83 Other fatigue
CPT/HCPCS: 36415; 80053; 80061; 83036; 83721; 84439; 84443; 84481; 85025; 86376; 86800

== ENCOUNTER 2024-02-08 13:20 | Outpatient (CLI) | payer MEDICARE, MEDICAID ==
--- NOTE | 2024-02-09 09:39 | Mammography Report ---
BILATERAL DIGITAL SCREENING MAMMOGRAM 3D/2D: 02/08/2024 CLINICAL: Routine screening. Personal history of left breast cancer. Comparison is made to exams dated: 11/16/2022 mammogram - [facility], 12/11/2021 mammo [facility], 05/20/2021 mammogram, 06/24/2020 mammogram, 10/25/2019 mammogram, and 09/11/2019 ma mmogram - [facility]. Both breasts are almost entirely fatty (category a/<25% glandular tissue). There are benign post operative findings and biopsy clip in the left breast. No significant masses, calcifications, or other findings are seen in either breast. There has been no significant interval change. IMPRESSION: BENIGN There is no mammographic evidence of malignancy. A 1 year screening mammogram is recommended. This exam was interpreted at Station ID: [id number]. NOTE: For mammograms, a report in lay terms will be sent to the patient. Approximately 15% of breast malignancies will not be visualized mammographically. In the management of a palpable breast mass, a negative mammogram must not discourage biopsy of a clinically suspicious lesion. Electronically Signed By: Sb pastor/mayra:02/08/2024 14:35:39 letter sent: No_Letter ACR BI-RADS Category 2: Benign Finding(s) 3342F PARENCHYMAL PATTERN: (F) - The breast(s) demonstrate(s) diffuse fatty replacement. BI-RADS CATEGORY: (2) - 2 RECOMMENDATION: (ANNUAL) - Recommend routine annual screening mammography. [id number] 1 year screening LATERALITY: (B)
== END 2024-02-08 13:21 | disposition home or self-care (01) ==
LOC: DI 13:20
DX: Z12.31 Encounter for screening mammogram for malignant neoplasm of breast (principal); Z85.3 Personal history of malignant neoplasm of breast

== ENCOUNTER 2024-02-17 07:05 | Outpatient (CLI) | payer MEDICARE, MEDICAID ==
[2024-02-17 15:32] LABS: THYROID STIMULATING HORMONE 5.37 uIU/mL (0.34-5.60)
== END 2024-02-17 07:06 | disposition home or self-care (01) ==
LOC: LAB.S 07:05
PROVIDERS: ATTEND Internal Medicine
DX: E03.9 Hypothyroidism, unspecified (principal); M77.9 Enthesopathy, unspecified; L40.9 Psoriasis, unspecified
CPT/HCPCS: 36415; 81374; 84439; 84443; 84481

== ENCOUNTER 2024-02-22 13:02 | Outpatient (CLI) | payer MEDICARE, MEDICAID ==
--- NOTE | 2024-02-22 15:39 | MRI Report ---
PROCEDURE: Foot LT WO INDICATIONS: L FOOT PAIN TECHNIQUE: Noncontrast sagittal T1 spin echo and T2 fast spin echo with fat saturation, long-axis T1 spin echo a nd T2 fast spin echo with fat saturation, short-axis proton density fast spin echo and T2 fast spin e cho with fat saturation through the forefoot. COMPARISON: None. FINDINGS: Image quality: Diagnostic Bones: There is moderate focal edema at the second metatarsal head. There is no displaced fracture co mponent. Moderate degenerative changes seen at the first MTP joint. Mild scattered degenerative macedo es seen elsewhere. Mild focal edema also seen at the lateral cuboid Soft tissues: High-grade nearly full-thickness tear in the mid tendon peroneus longus, as across the. There is also moderate insertional tendinopathy. Intermetatarsal edema is present from the second an d third rays. The plantar tendons appear intact. Minimal edema is seen at the first ray sesamoids. In tact visualized extensor tendons. IMPRESSION: Moderate focal edema at the second metatarsal head, suspicious for stress/nondisplaced i njury versus Radha's infraction. Mild edema at the lateral cuboid, possibly due to additional bone contusion. High-grade nearly full-thickness tear of the peroneus longus in the mid tendon, adjacent to the cuboi d. There is also tendinopathy at the insertion. Minimal edema of the first ray sesamoids, without discrete plantar plate tear. First MTP moderate degenerative changes, and mild degenerative changes seen elsewhere. Possible mild intermetatarsal bursitis. Reviewed by: Jaswant Rivera MD on 02/22/2024 3:38 PM PDT Approved by: Jaswant Rivera MD on 02/22/2024 3:38 PM PDT Station ID: [id number]
== END 2024-02-22 13:03 | disposition home or self-care (01) ==
LOC: DI 13:02
PROVIDERS: ATTEND Internal Medicine
DX: M19.072 Primary osteoarthritis, left ankle and foot (principal); S96.812A Strain of other specified muscles and tendons at ankle and foot level, left foot, initial encounter; R60.0 Localized edema

== ENCOUNTER 2024-03-24 09:01 | Outpatient (CLI) | payer MEDICARE, MEDICAID | END 2024-03-24 23:59 | disposition critical access hospital (66) | LOC: EMS 09:01 | DX: I10 Essential (primary) hypertension (principal); F41.9 Anxiety disorder, unspecified | CPT/HCPCS: A0425; A0429 ==

== ENCOUNTER 2024-03-24 09:30 | Emergency (ER) | payer MEDICARE, MEDICAID ==
[2024-03-24] MEDS: LOSARTAN 50 MG TABLET PO STA (10:54)
--- NOTE | 2024-03-24 11:02 | ED Physician Documentation ---
History of Present Illness - Stated complaint Stated Complaint: UNWELL - Chief complaint Chief Complaint: General - History obtained from History obtained from: Patient - Additonal information Additional information: The patient comes to the emergency department chief complaint of elevated blood pressure. She states she felt like her head was pounding and she was little lightheaded and so she took her blood pressure and found that it was around 200 systolic. The patient had already been up since around 6 or 7 AM and is supposed to take all of her morning meds, including her blood pressure medic ation, when she first gets up. However, the patient states she feels very nervous about taking all of her medications together, so she spreads them out 1 at a time. She had to take her thyroid medication first because she could not take it with food, but then took her time waiting to take her blood pressure medication. By the time her symptoms started, it was already midmorning. The patient states that she did not have any chest pain or shortness of breath. No nausea or vomiting. No focal neurologic deficits. As soon as the patient saw that her blood pressure was high, she decided to come to the emergency department. She states she did not take her home medications because she thought we might give her something here instead. No other complaints at this time. The patient actually has an appointment this afternoon with her primary to discuss treatment of her blood pressure. The patient states she feels little better now. She just got nervous she says. PD PAST MEDICAL HISTORY - Past Medical History Cardiovascular: Hypertension Respiratory: None Endocrine/Autoimmune: HyPOthyroidism GI: None : None HEENT: None Psych: None Musculoskeletal: None Derm: Psoriasis - Past Surgical History Past Surgical History: Yes General: Cholecystectomy /MEDICAL SPECIALIST: Tubal ligation HEENT: Tonsil/Adenoidectomy - Present Medications Home Medications: Ambulatory Orders Medication Instructions Recorded Confirmed Thyroid,Pork [[place] Thyroid] 120 mg PO DAILY 09/09/20 03/24/24 traMADol [Ultram] 50 mg PO Q4-6H PRN #14 tablet 09/16/20 03/24/24 Levothyroxine [Synthroid] 75 mcg PO DAILY 12/23/21 03/24/24 Losartan Potassium 25 mg PO DAILY 03/24/24 03/24/24 - Allergies Allergies/Adverse Reactions: Allergies Allergy/AdvReac Type Severity Reaction Status Date / Time codeine AdvReac Nausea Verified 03/24/24 09:48 - Social History Does the pt smoke?: No Smoking Status: Never smoker Does the pt drink ETOH?: Yes Does the pt have substance abuse?: Yes - Immunizations Immunizations are current?: Yes - POLST Patient has POLST: No PD ED PE NORMAL - Vitals Vital signs reviewed: Yes - General General: Alert and oriented X 3, No acute distress, Well developed/nourished - HEENT HEENT: Atraumatic, EOMI, Moist mucous membranes - Neck Neck: Supple, no meningeal sign - Cardiac Cardiac: RRR, No murmur - Respiratory Respiratory: No respiratory distress, Clear bilaterally - Abdomen Abdomen: Soft, Non tender, Non distended - Derm Derm: Normal color, Warm and dry, No rash - Extremities Extremities: No deformity, No edema - Neuro Neuro: Other (Alert, grossly oriented.) - Psych Psych: Normal mood, Normal affect Results - Vitals Vitals: Oxygen O2 Source Room air PD Medical Decision Making - ED course Complexity details: considered differential, d/w patient ED course: The patient was very well-appearing and her blood pressure was down to the 150s over 90s in the emergency department. I discussed with the patient that the first thing she should do if she finds her blood pressure to be high is to take the blood pressure medication that she is overdue to take. I discussed with her that this is not hypertensive emergency and that the best next thing she could do, other than taking her medicine, is to follow-up as planned with her primary doctor. The patient states she is intending to do this. She has no chest pain or shortness of breath and is very well-appearing. I feel she is stable for discharge home with no further workup in the emergency department. We have discussed the usual indications for return. Departure - Departure Disposition: Home, Self Care Clinical Impression: Hypertension Qualifiers: Hypertension type: primary hypertension Qualified Code(s): I10 - Essential (primary) hypertension Condition: Stable Instructions: ED HTN Established Comments: Your blood pressure is elevated but not dangerously so today. It is important that you take your medication every day, as directed. If your pressure is high at home, then by all means take your meds right away. As long as you are not having any symptoms of vital organ damage, such as chest pain, shortness of breath, or strokelike symptoms, we generally do not give IV medications in the emergency department, and there is no role for rushing in here without taking her meds. Please follow-up with your primary this afternoon as scheduled to continue working on your blood pressure management as an outpatient. Forms: PCP List Discharge Date/Time: 03/24/24 11:12
[2024-03-24 11:20] VITALS: BP 185/86; O2SAT 97
== END 2024-03-24 11:12 | disposition home or self-care (01) ==
LOC: EDUNIT# → ED 09:30
DX: I10 Essential (primary) hypertension (principal); E03.9 Hypothyroidism, unspecified; Z79.899 Other long term (current) drug therapy
CPT/HCPCS: 99283; A9270

== ENCOUNTER 2024-05-15 08:06 | Outpatient (CLI) | payer MEDICARE, MEDICAID ==
[2024-05-15 16:09] LABS: THYROID STIMULATING HORMONE 0.41 uIU/mL (0.34-5.60)
[2024-05-16 07:10] LABS: VITAMIN D 25-HYDROXY 34.7 ng/mL (30.0-100.0)
[2024-05-16 20:08] LABS: THYROGLOBULIN ANTIBODY <1.0 IU/mL (0.0-0.9)
== END 2024-05-15 08:07 | disposition home or self-care (01) ==
LOC: LAB.S 08:06
PROVIDERS: ATTEND Internal Medicine
DX: I10 Essential (primary) hypertension (principal); E03.9 Hypothyroidism, unspecified; R53.83 Other fatigue
CPT/HCPCS: 36415; 82306; 84439; 84443; 84445; 84481; 86800